=== PATIENT | female | born 1990 | race Caucasian/White ===

== ENCOUNTER → 2016-07-13 | Outpatient (CLI) | payer OTHER ==
[2016-07-13 17:19] LABS: THYROID STIMULATING HORMONE 1.7 uIu/ml (0.300-4.500)
== END | disposition home or self-care (01) ==
LOC: C.LAB1850 15:19
PROVIDERS: ATTEND Internal Medicine Endocrinology, Diabetes & Metabolism
DX: E06.3 Autoimmune thyroiditis (principal)

== ENCOUNTER → 2016-11-13 | Outpatient (CLI) | payer OTHER ==
[~2016-11-13] MED LIST: LEVO100T7 PO; LOSA1TAB38 PO
--- NOTE | 2016-11-13 15:10 | DIAGNOSTIC IMAGING REPORT ---
THYROID ULTRASOUND HISTORY: E03.9 NlexrclvyvjtptS94.3 Hyperparathyroidism Check parathyroid g COMPARISON: None. FINDINGS: Right lobe: Maximum dimension 5.7 cm. Heterogeneous internal architecture. Left lobe: Maximum dimension 4.9 cm. Heterogeneous internal architecture. Isthmus: No nodules. Parathyroid glands not identified IMPRESSION: 1. Heterogeneous thyroid architecture bilaterally. 2. Possibility of thyroiditis is considered. 3. Parathyroid glands are not identified Electronically signed by: Mauricio Byrnes M.D. 11/13/2016 3:09 PM Dictated Date/Time: 11/13/2016 3:07 PM
--- NOTE | 2016-11-13 20:08 | DIAGNOSTIC IMAGING REPORT ---
PARATHYROID IMAGING HISTORY: E21.3 PwpwlaasnksxubcqgisM64.52 Hypercalcemia TECHNIQUE: Static and SPECT images of the neck and chest were performed 15 minutes and 3 hours following the intravenous administration of 21.2 mCi of technetium 99 M Cardiolite COMPARISON STUDY: Thyroid ultrasound 11/13/2016. FINDINGS: There is a focal area of radiotracer uptake either within or adjacent to the lower pole of the right thyroid lobe which persists on delayed sequences. No abnormal radiotracer uptake within the chest. Incidental note is made of a focal area of persistent radiotracer uptake within the right hepatic dome. IMPRESSION: 1. Focal area of persistent radiotracer uptake either within or adjacent to the lower pole of the right thyroid lobe. This is concerning for parathyroid adenoma. . 2. There is also a focal area of persistent radiotracer uptake within the right hepatic dome. Dedicated liver ultrasound or MRI is recommended to assess for a hepatic lesion Electronically signed by: Jose A Marroquin M.D. 11/14/2016 9:34 AM Dictated Date/Time: 11/13/2016 8:00 PM
== END | disposition home or self-care (01) ==
LOC: C.ULTR 14:17
PROVIDERS: ATTEND Internal Medicine Endocrinology, Diabetes & Metabolism
DX: E03.9 Hypothyroidism, unspecified (principal); E21.3 Hyperparathyroidism, unspecified; E83.52 Hypercalcemia

== ENCOUNTER → 2016-11-17 | Outpatient (CLI) | payer OTHER ==
--- NOTE | 2016-11-17 10:47 | DIAGNOSTIC IMAGING REPORT ---
ABDOMINAL ULTRASOUND, RIGHT UPPER QUADRANT HISTORY: Abnormal nuclear medicine scan. Assess for liver mass. E21.3 LevpaecmvotlisfdsjaF20.52 HypercalcemiaPersistant radiotracer. COMPARISON: 11/13/2016 parathyroid scan FINDINGS: Pancreas: The pancreatic head and tail are obscured by overlying bowel gas. The remaining portions of the pancreas are within normal limits. Liver: Multiple similar-appearing hypoechoic masses seen scattered throughout the liver. Dominant mass measures 10 cm. This likely corresponds to the abnormality on the prior nuclear medicine scan. Gallbladder: Multiple small stones. No gallbladder wall thickening. CBD: 4 mm. Right kidney: No hydronephrosis. IMPRESSION: 1. Multiple hepatic masses which are concerning for metastatic disease. The sestamibi uptake on the prior nuclear medicine scan is nonspecific but can be seen in the setting of metastatic thyroid cancer, or thyroid cancer, or possibly breast cancer. Dedicated liver MRI is recommended for further evaluation of these lesions. 2. Cholelithiasis. Electronically signed by: Jose A Marroquin M.D. 11/17/2016 10:45 AM Dictated Date/Time: 11/17/2016 10:41 AM
== END | disposition home or self-care (01) ==
LOC: C.ULTRBC 09:41
PROVIDERS: ATTEND Internal Medicine Endocrinology, Diabetes & Metabolism
DX: E83.52 Hypercalcemia (principal)

== ENCOUNTER → 2016-11-17 | Outpatient (CLI) | payer OTHER ==
[2016-11-17 12:11] LABS: CALCIUM 11.7 mg/dl (8.5-10.1); CREATININE 0.63 mg/dl (0.60-1.20)
[2016-11-17 12:51] LABS: ESTIMATED AVERAGE GLUCOSE 111 mg/dl; HA1C FLAG Normal (Normal)
== END | disposition home or self-care (01) ==
LOC: C.LAB1850 10:59
PROVIDERS: ATTEND Physician Assistant
DX: E21.3 Hyperparathyroidism, unspecified (principal); E03.9 Hypothyroidism, unspecified; E88.81 Metabolic syndrome and other insulin resistance

== ENCOUNTER → 2016-11-24 | Outpatient (CLI) | payer OTHER ==
[~2016-11-24] MED LIST changes: +GADOXETATE DISODIUM (NON-WT BASED PROCEDURE) IV PRN
--- NOTE | 2016-11-24 10:20 | DIAGNOSTIC IMAGING REPORT ---
ADDENDUM ADDITIONAL CLINICAL HISTORY: After discussion with Dr. Wen, the provided history of thyroid cancer was erroneous. The patient has a history of the suspected parathyroid adenoma and prior/recent history of oral contraceptives. Given the absence of malignancy and no metastases, the differential considerations for the liver findings are substantially different. ADDITIONAL FINDINGS: The numerous T2 hyperintense, T1 isointense hypervascular lesions scattered throughout the liver do not retain hepatobiliary specific contrast. In and opposed phase imaging demonstrate no loss of signal in these lesions. These lesions also do not contain macroscopic fat on fat only imaging. In the surrounding normal liver parenchyma, hepatic fat fraction measures 8.5% indicating mild steatosis. ADDITIONAL IMPRESSION: 1. In the absence of known malignancy or metastatic disease, primary differential considerations for these lesions include hepatic adenomas, or given the multiplicity, adenomatosis. 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 Correlation with prior imaging would be helpful to evaluate for stability. Follow-up MR with Eovist could be considered and/or biopsy given the risk of malignant degeneration to HCC. Correlate with continued oral contraceptive use. These findings were discussed with Dr. Wen at approximately 3:00 PM on 11/27/2016. Electronically signed by: Jad Pike 11/27/2016 3:13 PM Dictated Date/Time: 11/27/2016 3:07 PM ORIGINAL REPORT LIVER COMBO CLINICAL HISTORY: 26 years-old Female presenting with ABNORMAL FINDING ON ULTRASOUND, history of thyroid cancer and clinical concern for metastatic disease on ultrasound. TECHNIQUE: Multisequence multiplanar MR imaging of the liver was performed before and after the administration of 10 mL of the wrist intravenous contrast. COMPARISON: Correlation made to ultrasound of the liver from 11/17/2016. FINDINGS: Lung bases: Lung bases clear. No pericardial or pleural effusion. Liver: Multiple hypervascular T2 hyperintense, T1 isointense lesions noted scattered throughout the liver, primarily involving the right lobe. Most of these lesions restrict diffusion. These do not demonstrate loss of signal on opposed phase imaging. Postcontrast imaging demonstrates lack of retention of hepatobiliary specific contrast. The largest lesions are enumerated below: -Segment 8 lesion measures 4.5 cm (see series 17 image 23) -Segment 7 lesion measures 5.6 cm (series 17 image 48) -Segment 6 lesion measures 7.1 cm (series 17 image 83) Accessory left hepatic artery arising from the left gastric artery. Superior mesenteric, portal, and hepatic veins patent. Biliary: No intrahepatic or extra hepatic biliary ductal dilatation. Gallbladder contains gallstones. Pancreas: Normal. No pancreatic ductal dilatation. Spleen: Normal. Adrenal glands: Normal. Kidneys: Normal. Bowel: Normal. Peritoneum: No free fluid. Vasculature: Aorta and IVC patent. Lymph nodes: No lymphadenopathy in the abdomen. Musculoskeletal: Bone marrow signal intensity within normal limits. IMPRESSION: 1. Multiple hepatic lesions most suspicious for metastatic disease. Hypervascularity and lack of retention of hepatobiliary specific contrast would be compatible with metastases from thyroid cancer. 2. Cholelithiasis. Electronically signed by: Jad Pike 11/24/2016 10:19 AM Dictated Date/Time: 11/24/2016 10:09 AM
== END | disposition home or self-care (01) ==
LOC: C.MRIBC 07:48
PROVIDERS: ATTEND Internal Medicine Endocrinology, Diabetes & Metabolism
DX: R93.2 Abnormal findings on diagnostic imaging of liver and biliary tract (principal); K76.9 Liver disease, unspecified; K80.20 Calculus of gallbladder without cholecystitis without obstruction

== ENCOUNTER → 2016-12-28 | Outpatient (CLI) | payer OTHER ==
[~2016-12-28] MED LIST changes: -GADOXETATE DISODIUM (NON-WT BASED PROCEDURE) IV PRN
[2016-12-28 13:27] LABS: PROTHROMBIN TIME (PATIENT) 10.6 SECONDS (9.0-12.0)
[2016-12-28 13:38] LABS: BASO % 0.5 %; BASO ABS # 0.03 K/uL (0-0.2); COMPLETE YES; EOS % 2.2 %; HEMATOCRIT 36.4 % (37-47); IG% 0.2 %; LYMPH % 31.8 %; LYMPH ABS # 2.02 K/uL (1.2-3.4); MEAN CELL VOLUME 85.4 fL (80-100); MEAN CORPUSCULAR HEMOGLOBIN 28.2 pg (25-34); MEAN PLATELET VOLUME 9.1 fL (7.4-10.4); MONO % 6.3 %; PLATELET COUNT 332 K/uL (130-400); RED BLOOD COUNT 4.26 M/uL (4.2-5.4); WHITE BLOOD COUNT 6.35 K/uL (4.8-10.8)
[2016-12-28 13:44] LABS: ALT/SGPT 42 U/L (12-78); AST/SGOT 18 U/L (15-37); BLOOD UREA NITROGEN 12 mg/dl (7-18); BUN/CREATININE RATIO 16.1 (10-20); CALCIUM 11.4 mg/dl (8.5-10.1); CARBON DIOXIDE 28 mmol/L (21-32); CHLORIDE 106 mmol/L (98-107); CREATININE 0.74 mg/dl (0.60-1.20); GLUCOSE 121 mg/dl (70-99); POTASSIUM 3.6 mmol/L (3.5-5.1); SODIUM 141 mmol/L (136-145)
[2016-12-28 13:46] LABS: ALB/GLOB RATIO 1.1 (0.9-2); ALKALINE PHOSPHATASE 156 U/L (45-117)
== END | disposition home or self-care (01) ==
LOC: C.LAB1850 11:55
PROVIDERS: ATTEND Internal Medicine
DX: R16.0 Hepatomegaly, not elsewhere classified (principal)

== ENCOUNTER 2017-03-07 06:14 | Day surgery (SDC) | payer OTHER ==
[2017-02-16 15:05] LABS: BASO % 1.2 %; BASO ABS # 0.07 K/uL (0-0.2); COMPLETE YES; EOS % 3.6 %; IG% 0.3 %; LYMPH % 34.6 %; LYMPH ABS # 2.02 K/uL (1.2-3.4); MEAN CELL VOLUME 84.3 fL (80-100); MEAN CORPUSCULAR HEMOGLOBIN 27.7 pg (25-34); MEAN CORPUSCULAR HGB CONC 32.9 g/dl (32-36); MEAN PLATELET VOLUME 9.2 fL (7.4-10.4); MONO % 8.7 %; NEUT % 51.6 %; PLATELET COUNT 365 K/uL (130-400); RED BLOOD COUNT 4.51 M/uL (4.2-5.4); WHITE BLOOD COUNT 5.83 K/uL (4.8-10.8)
[2017-02-16 15:10] LABS: PROTHROMBIN TIME (PATIENT) 10.2 SECONDS (9.0-12.0)
[2017-02-16 15:15] LABS: POTASSIUM 4.1 mmol/L (3.5-5.1)
[2017-02-22 13:20] VITALS: BMI 32.0
[~2017-03-07] VITALS: Ht 162.6 cm; Wt 86.4 kg
[~2017-03-07 06:14] MED LIST changes: +CEFAZOLIN 2000 MG/60 ML D5W IV SCH; +LACTATED RINGER'S 1000ML 1,000 ML IV SCH
--- NOTE | 2017-03-07 06:47 | History and Physical ---
History & Physical Date Mar 07, 2017. Chief Complaint PRIMARY HPT History of Present Illness The patient is a 26 year old female with complaints of PRIMARY HPT WITH LOCALIZING STUDY SUGGESTING RIGHT INFERIOR PARATHYROID ADENOMA. CALCIUM LEVELS AND PTH LEVELS BOTH ELEVATED. + H/O KIDNEY STONES. Past Medical/Surgical History PMH: PRIMARY HPT, HYPOTHYROIDISM, MULTIPLE LARGE LIVER ADENOMAS PSH: S/P ORAL SURGERY Additional History Hepatic Disease: No Endocrine Disorder: No Kidney Disease: No Hypertension: No Heart Disease: No Bleeding Tendencies: No Infectious Diseases: No Allergies Coded Allergies: No Known Allergies (Unverified , 03/07/17) Home Medications Scheduled Levothyroxine Sodium (Levothyroxine Sodium), 100 MCG PO QAM Losartan Potassium (Cozaar), 100 MG PO QPM Physical Examination Skin: warm/dry, no rash Eyes: normal inspection, EOMI, sclerae normal ENT: normal ENT inspection, pharynx normal Head: normocephalic, atraumatic Neck: supple, no adenopathy, trachea midline Respiratory/Chest: lungs clear, normal breath sounds, no respiratory distress Cardiovascular: regular rate, rhythm, no edema, no murmur Neurologic/Psych: no motor/sensory deficits, alert, normal reflexes, oriented x 3 Diagnosis PRIMARY HPT Plan of Treatment PARATHYROIDECTOMY
[2017-03-07 06:51] VITALS: BP 164/84; PULSE 100; TEMP 36.8; O2SAT 99; Ht 162.6 cm; Wt 86.4 kg
[2017-03-07] MEDS ORDERED: FENTANYL CITRATE INJ 50 MCG/1 ML 2 ML VIAL ONE ×3 (07:05→11:25)
[2017-03-07] MEDS ORDERED: MIDAZOLAM HCL 1 MG/ML 2ML VIAL ONE (07:05)
[2017-03-07] MEDS ORDERED: LIDOCAINE HCL 2% 2 ML VIAL (20MG/ML) ONE (08:09)
[2017-03-07] MEDS ORDERED: PROPOFOL IV EMULSION 10 MG/ML 20 ML VIAL IV ONE (08:09)
[2017-03-07] MEDS ORDERED: ONDANSETRON INJ 2 MG/ML 2 ML VIAL ONE ×2 (08:09→10:23)
[2017-03-07] MEDS ORDERED: DEXAMETHASONE SOD INJ 4 MG/ML VIAL ONE (08:09)
[2017-03-07] MEDS ORDERED: LIDOCAINE/EPINEPHRINE 1% 20 ML VIAL ONE (08:12)
[2017-03-07] MEDS ORDERED: THROMBIN 5000 UNITS KIT ONE (08:12)
[2017-03-07] MEDS ORDERED: BACITRACIN OINT 15 GM TUBE ONE (08:13)
[2017-03-07] MEDS ORDERED: ATROPINE SULFATE 0.1 MG/ML 5ML SYR IV PRN (08:15)
[2017-03-07] MEDS ORDERED: FENTANYL CITRATE INJ 50 MCG/1 ML 2 ML VIAL IV PRN (08:15)
[2017-03-07] MEDS ORDERED: ONDANSETRON INJ 2 MG/ML 2 ML VIAL IV PRN (08:15)
[2017-03-07] MEDS ORDERED: EpHEDrine SULFATE INJ 50 MG/ML AMP IV PRN (08:15)
--- NOTE | 2017-03-07 10:35 | [facility] Operative Report ---
Operative Report Operative Date Mar 07, 2017. Pre-Operative Diagnosis Primary Hyperparathyroidism Post-Operative Diagnosis Same as preoperative Procedure(s) Performed Right Inferior Parathyroidectomy Surgeon Dr. Toby Baires Cloth Baler Surgeon(s) Leeanna Paniagua PA-C Estimated Blood Loss 5mL Findings 1. LARGE RIGHT INFERIOR PARATHYROID GLAND - ADENOMA ON FROZEN SECTION 2. PREOP PTH 125.7 DECREASED TO <5.5 AFTER REMOVAL OF OFFENDING ADENOMA Specimens Frozen section #1 out of body at 0914: right anterior parathyroid candidate out of room at 0919. Permanent Specimen: A: Right parathyroidal lymph node I attest to the content of the Intraoperative Record and any orders documented therein. Any exceptions are noted below.
--- NOTE | 2017-03-07 10:38 | Discharge Instructions ---
Discharge Instructions Date of Service Mar 07, 2017. Admission Reason for Admission: Primary Hyperparathyroidism;Z01.818 Discharge Discharge Diagnosis / Problem: SAME Discharge Goals Goal(s): Therapeutic intervention Activity Recommendations Activity Limitations: as noted below 1. NO LIFTING > OR = 15LBS FOR 2 WEEKS 2. LIGHT ACTIVITY FOR 2 WEEKS 3. NO DRIVING WHILE ON NORCO . Current Hospital Diet Patient's current hospital diet: Discharge Diet Recommended Diet: Regular Diet Procedures Procedures Performed: Right Inferior Parathyroidectomy Pending Studies Studies pending at discharge: no Medical Emergencies . Who to Call and When: Medical Emergencies: If at any time you feel your situation is an emergency, please call 911 immediately. . Non-Emergent Contact Non-Emergency issues call your: Surgeon . . "Provider Documentation" section prepared by Toby Baires. . VTE Core Measure Inpt VTE Proph given/why not?: SCD's
[2017-03-07] MEDS ORDERED: HYDROCODONE/ACETAMOPHEN 5/325MG TAB PO PRN ×2 (10:45)
[2017-03-07] MEDS ORDERED: NURSING VERBAL MED ORDER ONE (10:50)
[2017-03-07] MEDS ORDERED: PROMETHAZINE HCL INJ 6.25 MG in SODIUM CHLORIDE 0.9% 50ML 50 ML IV ONE (11:00)
--- NOTE | 2017-03-07 11:13 | OPERATIVE REPORT ---
DATE OF OPERATION: 03/07/2017 POSTOPERATIVE DIAGNOSIS: Primary hyperparathyroidism. PROCEDURE: Right inferior parathyroidectomy. SURGEON: Toby Baires MD SENIOR OPERATIONS ANALYST: Leeanna Paniagua PA-C ESTIMATED BLOOD LOSS: 5 mL. FINDINGS: 1. Very large right inferior parathyroid gland with adenoma on frozen section diagnosis. 2. Preoperative PTH of 125.7 which decreased to less than 5.5 after removal of the offending parathyroid gland. SPECIMENS: 1. Right inferior parathyroid gland for frozen section diagnosis. 2. Parathyroidal lymph node for permanent pathological assessment. DRAINS: None. COMPLICATIONS: None. INDICATIONS FOR THE PROCEDURE: The patient is a 26-year-old female with a history of primary hyperparathyroidism with her last calcium being 11.7 and her preoperative PTH this morning at 125.7. She had a sestamibi scan that localized to the right inferior parathyroid gland. She has a history of kidney stones. She presents for the above-mentioned procedure on an outpatient elective basis. DESCRIPTION OF PROCEDURE: After informed consent had been obtained from the patient, the patient was wheeled to the operating room and placed on the operating table in the supine position. Monitors were placed. After induction of general endotracheal anesthesia with a nerve integrity monitor endotracheal tube, the patient's head and neck were gently extended. A marking pen was used to outline the planned 5 cm incision in a natural skin crease 2 fingerbreadths above the level of clavicles. A 3 mL of 1% lidocaine with 1:100,000 epinephrine was used to inject the skin and subcutaneous tissues overlying the planned incision site. The skin of the neck and chest were then prepped and draped in the usual sterile fashion. A #15 scalpel was then used to make the incision through the skin, subcutaneous tissue, and platysma. Subplatysmal flaps were raised superiorly to the level of the thyroid notch and inferiorly to the level of the clavicles. The median raphe of the strap muscles was divided using Bovie electrocautery. The strap muscles were retracted laterally. Attention was taken to the right side first given the preoperative localization study. Immediately posterior to the right thyroid lobe in the inferior aspect was a large inferior parathyroid candidate. Blunt and sharp dissection was used to remove the parathyroid gland and from the thyroid gland with care to identify and preserve the right recurrent laryngeal nerve. The specimen was sent off for frozen section diagnosis. The wound was copiously irrigated and suctioned. Bipolar electrocautery was used to achieve adequate hemostasis. Small pieces of Surgicel followed by topical spray thrombin were then placed into the right tracheoesophageal groove for added hemostatic effect. 10 minutes after removal of the right inferior parathyroid gland candidate, anesthesia team kimo labs for an intraoperative PTH level. The strap muscles were then reapproximated using a simple running interlocked 3-0 Vicryl suture. The platysma was then closed with several deep 4-0 Monocryl sutures. The skin was then closed with a simple running subcuticular 5-0 Monocryl suture. Unfortunately, the intraoperative PTH lab value was hemolyzed, therefore, a new blood draw was obtained by the anesthesia team. came this was approximately 40 minutes after removal of the offending adenoma and the intraoperative PTH came back less than 5.5 indicating surgical cure. The incision was cleansed and dried. Dermabond was applied to the incision. This marked the end of the case. The patient tolerated the procedure well. There were no apparent complications. The patient was extubated and transferred to recovery room in stable condition. Of note, there were several enlarged, benign appearing lymph nodes adjacent to the thyroid gland during the case. One of these lymph nodes was dissected free from the thyroid gland inferiorly and sent off for permanent pathological assessment given the multiple lymph nodes that were present and that were mildly enlarged. I attest to the content of the Intraoperative Record and any orders documented therein. Any exception s are noted below.
[2017-03-07 11:35] VITALS: BP 141/91; PULSE 101; TEMP 36.6; O2SAT 97
[2017-03-07] MEDS ORDERED: ROCURONIUM BROMIDE 10 MG/ML 5 ML VIAL IV ONE (11:50)
[2017-03-07 12:05] VITALS: BP 149/96; PULSE 96; TEMP 37; O2SAT 96
[2017-03-07 12:35] VITALS: BP 137/82; PULSE 97; TEMP 37.4; O2SAT 98
[2017-03-07 13:05] VITALS: BP 145/83; PULSE 94; TEMP 37.3; O2SAT 99
--- NOTE | 2017-03-07 13:17 | Anesthesiology Progress Note ---
Anesthesia Post Op Note Date & Time Mar 07, 2017 at 13:17 Vital Signs Pain Intensity: 0 Vital Signs Past 12 Hours Date Time Temp Pulse Resp B/P (MAP) Pulse Ox O2 Delivery O2 Flow Rate FiO2 03/07/17 13:05 37.3 94 18 145/83 99 Room Air 03/07/17 12:35 37.4 97 18 137/82 98 Room Air 03/07/17 12:05 37 96 16 149/96 96 Room Air 03/07/17 11:35 36.6 101 16 141/91 97 Room Air 03/07/17 11:21 135/94 03/07/17 11:17 105 18 95 03/07/17 11:17 105 18 03/07/17 11:16 144/91 03/07/17 11:13 36.4 106 18 144/91 (104) 95 Room Air 03/07/17 11:12 108 23 95 03/07/17 11:12 108 23 03/07/17 11:11 144/89 03/07/17 11:07 115 22 03/07/17 11:07 115 22 95 03/07/17 11:06 141/83 03/07/17 11:02 110 18 94 03/07/17 11:02 111 18 03/07/17 11:01 139/90 03/07/17 10:59 109 12 03/07/17 10:59 109 12 95 03/07/17 10:56 126/78 03/07/17 10:54 109 18 95 03/07/17 10:54 109 18 03/07/17 10:51 133/84 03/07/17 10:49 111 12 99 03/07/17 10:49 110 12 03/07/17 10:46 147/72 03/07/17 10:44 109 15 03/07/17 10:44 108 15 140/70 99 03/07/17 10:44 36.0 109 15 140/70 (93) 99 Oxymask 10 03/07/17 06:51 36.8 100 18 164/84 (110) 99 Room Air Notes Mental Status: alert / awake / arousable, participated in evaluation Pt Amnestic to Procedure: Yes Nausea / Vomiting: adequately controlled Pain: adequately controlled Airway Patency, RR, SpO2: stable & adequate BP & HR: stable & adequate Hydration State: stable & adequate Anesthetic Complications: no major complications apparent
[2017-03-07 13:31] VITALS: BP 143/82; PULSE 101; TEMP 37.1; O2SAT 99
== END 2017-03-07 13:39 | disposition home or self-care (01) ==
LOC: C.ACU 06:14
DX: E21.0 Primary hyperparathyroidism (principal); R59.0 Localized enlarged lymph nodes; D13.4 Benign neoplasm of liver; Z79.899 Other long term (current) drug therapy

== ENCOUNTER → 2017-03-16 | Outpatient (CLI) | payer OTHER ==
[~2017-03-16] MED LIST changes: -CEFAZOLIN 2000 MG/60 ML D5W IV SCH; -LACTATED RINGER'S 1000ML 1,000 ML IV SCH
--- NOTE | 2017-03-16 13:09 | DIAGNOSTIC IMAGING REPORT ---
CHEST 2 VIEWS ROUTINE HISTORY: 26 years-old Female HEPATIC ADENOMA preoperative exam. COMPARISON: Liver MRI 11/24/2016 TECHNIQUE: Frontal and lateral views of the chest FINDINGS: Cardiomediastinal and hilar silhouettes are within normal limits. No pneumothorax, pleural effusion or focal airspace consolidation. The bones are intact. No suspicious lytic or blastic bony lesions. IMPRESSION: No acute cardiopulmonary process. The above report was generated using voice recognition software. It may contain grammatical, syntax or spelling errors. Electronically signed by: Mik Peters M.D. 03/16/2017 1:08 PM Dictated Date/Time: 03/16/2017 1:03 PM
[2017-03-16 13:16] LABS: BASO % 0.5 %; BASO ABS # 0.03 K/uL (0-0.2); COMPLETE YES; EOS % 3.1 %; HEMATOCRIT 37.6 % (37-47); IG% 0.3 %; LYMPH % 30.3 %; LYMPH ABS # 1.83 K/uL (1.2-3.4); MEAN CELL VOLUME 85.5 fL (80-100); MEAN CORPUSCULAR HEMOGLOBIN 27.7 pg (25-34); MEAN CORPUSCULAR HGB CONC 32.4 g/dl (32-36); MEAN PLATELET VOLUME 9.1 fL (7.4-10.4); MONO % 8.8 %; PLATELET COUNT 356 K/uL (130-400); WHITE BLOOD COUNT 6.04 K/uL (4.8-10.8)
[2017-03-16 13:32] LABS: PARTIAL THROMBOPLASTIN RATIO 1.1; PROTHROMBIN TIME (PATIENT) 10.4 SECONDS (9.0-12.0)
[2017-03-16 13:46] LABS: ALT/SGPT 28 U/L (12-78); AST/SGOT 10 U/L (15-37); BLOOD UREA NITROGEN 12 mg/dl (7-18); BUN/CREATININE RATIO 20.3 (10-20); CARBON DIOXIDE 25 mmol/L (21-32); CHLORIDE 107 mmol/L (98-107); CREATININE 0.57 mg/dl (0.60-1.20); GLUCOSE 98 mg/dl (70-99); MAGNESIUM 2.1 mg/dl (1.8-2.4); SODIUM 140 mmol/L (136-145)
[2017-03-16 13:48] LABS: ALB/GLOB RATIO 1.1 (0.9-2); ALKALINE PHOSPHATASE 162 U/L (45-117)
== END | disposition home or self-care (01) ==
LOC: C.CPL 12:12
PROVIDERS: ATTEND Specialist
DX: Z01.818 Encounter for other preprocedural examination (principal); D13.4 Benign neoplasm of liver